=== PATIENT | male | born 1985 | race Caucasian/White ===

== ENCOUNTER 2018-05-15 18:55 | Emergency (ER) | payer OTHER ==
[2018-05-15] MEDS ORDERED: BUS5 PO (19:10)
[2018-05-15] MEDS ORDERED: BUPR-472 PO (19:10)
--- NOTE | 2018-05-15 19:11 | ER Report ---
History and Physical Time Seen By MD: 19:08 Hx. of Stated Complaint: sudden onset of back pain around 5:30 tonight. has a previous back injury that hasn't flaired up inawhile. had an mri in 2016. has a "protrusion" in his lower back HPI/ROS CHIEF COMPLAINT: Back pain HISTORY OF PRESENT ILLNESS: This is a 33-year-old male who presents to the emergency department for back pain. Patient states that he's had intermittent back pain since 2009, however recently has been well controlled, although today he states that he was going to work this evening, forgot something and was walking back and got to the landing of the stairs and had sudden onset of low back pain patient states that it was debilitating, was able to get himself to his apartment, where he was laying on the floor a friend did come and pick him up and did bring him to the emergency department for further evaluation. Patient denies recent injuries, no fevers or chills. No recent spinal surgeries. No saddle anesthesia, no loss of bowel or bladder, no urinary retention. Patient did have a chiropractic appointment today, he states he goes a chiropractor somewhat regularly to help prevent his recurrent back pain from developing. REVIEW OF SYSTEMS: Respiratory: No cough, no dyspnea. Cardiovascular: No chest pain, no palpitations. Gastrointestinal: No vomiting, no abdominal pain. Musculoskeletal: As above. Allergies: Coded Allergies: No Known Drug Allergies (Unverified , 05/15/18) Home Meds Active Scripts Prednisone (PREDNISONE) 20 Mg Tablet, 20 MG PO BID, #10 TAB Prov:[facility]ANNAN [facility]- 05/15/18 Cyclobenzaprine Hcl (CYCLOBENZAPRINE HCL) 10 Mg Tablet, 5-10 MG PO TID PRN for MUSCLE SPASMS, #9 TAB 0 Refills Prov:[facility]ANNAN [facility]- 05/15/18 Reported Medications Buspirone Hcl (BUSPIRONE HCL) 5 Mg Tab, 5 MG PO BID, #10 TAB 05/15/18 Bupropion Hcl (WELLBUTRIN XL) 150 Mg Tab.er.24h, 150 MG PO QDAY, TAB 05/15/18 Past Medical/Surgical History The patient has a past medical and surgical history of wearing glasses, back pain. Reviewed Nurses Notes: Yes Constitutional Vital Sign - Last 24 Hours 10/19/18 19:03 Temp 98.6 Pulse 87 Resp 18 B/P (MAP) 108/79 Pulse Ox 94 O2 Delivery Room Air Physical Exam General Appearance: The patient is alert, has no immediate need for airway protection and no current signs of toxicity. Eyes: Pupils equal and round no injection. Respiratory: Chest is non tender, lungs are clear to auscultation. Cardiac: regular rate and rhythm. Gastrointestinal: Abdomen is soft and non tender, no masses, bowel sounds normal. Musculoskeletal: Neck: Neck is supple and non tender. Low back pain, bilater ally with palpation. No deformities, step-offs or crepitus. Right lower back tightness is greater than left. Extremities have full range of motion and are non tender. Skin: No rashes or lesions. DIFFERENTIAL DIAGNOSIS: After history and physical exam differential diagnosis was considered for back pain including but not limited to muscular pain, herniated disc, spine fracture, intra-abdominal causes and urinary tract infection. Medical Decision Making ED Course/Re-evaluation ED Course On the patient was admitted to a room. A history and physical were obtained. Differential diagnoses were considered. After lengthy discussion with the patient, I did give the patient an injection of Norflex and Toradol. Patient did have significant relief with the injections, he states that he is feeling better. I did send the patient home with prescription for prednisone as well as Flexeril. The patient was also sent home with a take home pack for Flexeril. Patient declined pain medications. I also recommended the patient follow up with Dr. Teague or Dr[facility] for further evaluation of his back. The patient expressed understanding. Patient was feeling much better at the time of discharge. No other questions or concerns at this time. 05/15/2018 8:29:54 pm the patient's father did call, he wanted to speak with me, patient did give me permission to speak with his father. I did update the patient's father on his status. Decision to Disposition Date: May 15, 2018 Decision to Disposition Time: 20:27 Depart Departure Latest Vital Signs Vital Signs Date Time Temp Pulse Resp B/P (MAP) Pulse Ox O2 Delivery O2 Flow Rate FiO2 05/15/18 19:03 98.6 87 18 108/79 94 Room Air Impression: Primary Impression: Low back pain Condition: Improved Disposition: HOME OR SELF-CARE Referrals: BERTHA PEÑALOZA MD,DARREN Rashid MD New Scripts Prednisone (PREDNISONE) 20 Mg Tablet 20 MG PO BID, #10 TAB Prov: [facility]- 05/15/18 Cyclobenzaprine Hcl (CYCLOBENZAPRINE HCL) 10 Mg Tablet 5-10 MG PO TID PRN for MUSCLE SPASMS, #9 TAB 0 Refills Prov: [facility]N [facility]- 05/15/18 Patient Instructions: Acute Low Back Pain (ED), Back Pain (ED) Additional Instructions: No need for imaging today as you have no acute injury. Take the flexeril and prednisone as prescribed. My recommendation is to follow up with [facility], Dr. Peñaloza or Dr. Teague to discuss your back pain and possible solutions. Drink plenty of water. Get plenty of rest. continue with your stretches, avoid sit-ups and try planks instead. Continue with physical therapy. Return to the ED for any other concerns or worsening symptoms. Problem Qualifiers Primary Impression: Low back pain Chronicity: acute Back pain laterality: bilateral Sciatica presence: without sciatica Qualified Codes: M54.5 - Low back pain [facility]ANNAN [facility]INO [facility] May 15, 2018 19:11
[2018-05-15] MEDS ORDERED: ORPHENADRINE 60MG/2ML INJ IM ONE (19:35)
[2018-05-15] MEDS ORDERED: KETOROLAC 60 MG/2 ML VIAL IM ONE (19:35)
[2018-05-15] MEDS ORDERED: CYCL10TA29 PO (19:41)
[2018-05-15] MEDS ORDERED: PRED20TA6 PO (19:41)
[2018-05-15 20:29] VITALS: BP 123/79
[2018-05-15] MEDS ORDERED: CYCLOBENZAPRINE HCL 10 MG TH PO ONE (20:30)
== END 2018-05-15 20:38 | disposition home or self-care (01) ==
LOC: ER 20:10
DX: M54.5 Low back pain (principal)
CPT/HCPCS: 96372; 99283; J1885; J2360